=== PATIENT | male | born 1950 | race Caucasian/White ===

== ENCOUNTER 2017-03-12 08:34 | Day surgery (SDC) | payer MEDICARE ==
[~2017-03-12] VITALS: Ht 177.8 cm; Wt 85.0 kg
[~2017-03-12 08:34] MED LIST: ASPI-515 PO; ASPI-621 PO; DILT120C2 PO; FURO20TA3 PO; FURO40TA6 PO; HYDR-3245 PO; MULT-658 PO; POTA10TA5 PO; PRAV20TA2 PO; RIVA20TA PO; VIT1TABL32 PO; WARF5TAB PO
[2017-03-12] MEDS ORDERED: ASPI-496 PO (09:10)
[2017-03-12 09:12] VITALS: BP 128/85
[2017-03-12] MEDS ORDERED: LACTATED RINGERS 1,000 ML IV SCH (09:16)
[2017-03-12 09:44] VITALS: BP 128/85
[2017-03-12] MEDS ORDERED: PLEASE ENTER HEIGHT AND WEIGHT MC SCH (10:00)
[2017-03-12] MEDS ORDERED: BUPIVACAINE/PF 0.5% ONE (11:02)
[2017-03-12] MEDS ORDERED: EPINEPHRINE 1 MG/ML, 1ML ONE (11:02)
[2017-03-12] MEDS ORDERED: AMIODARONE 50 MG/ML, 3ML ONE (11:11)
[2017-03-12] MEDS ORDERED: FENTANYL PF 100 MCG/2ML ONE ×3 (11:14→12:37)
[2017-03-12] MEDS ORDERED: MIDAZOLAM 1 MG/ML, 2ML ONE (11:15)
[2017-03-12] MEDS ORDERED: DEXAMETHASONE 4 MG/ML, 1ML ONE (11:16)
[2017-03-12] MEDS ORDERED: PROPOFOL 10 MG/ML, 20ML ONE (11:16)
[2017-03-12] MEDS ORDERED: ONDANSETRON 2MG/ML, 2ML ONE (11:16)
[2017-03-12] MEDS ORDERED: CEFAZOLIN 1,000 MG ONE (11:16)
[2017-03-12] MEDS ORDERED: SUCCINYLCHOLINE 20 MG/ML, 10ML ONE (11:16)
[2017-03-12] MEDS ORDERED: BUPIVACAINE/PF-EPI 0.5% 1:200K INFIL ONE (11:49)
[2017-03-12] MEDS ORDERED: ACETAMINOPHEN 650 MG/20.3 ML UDC ONE (12:37)
[2017-03-12] MEDS ORDERED: OXYcodone 5 MG/5 ML ORAL.SOL UDC ONE (12:38)
[2017-03-12] MEDS ORDERED: HYDROcodone/APAP 7.5-325MG/15ML UDC PO PRN (13:00)
[2017-03-12] MEDS ORDERED: OXYcodone 5 MG/5 ML ORAL.SOL UDC PO PRN (13:00)
[2017-03-12] MEDS ORDERED: ACETAMINOPHEN 325 MG TABLET PO PRN (13:00)
[2017-03-12] MEDS ORDERED: EPHEDRINE 50 MG/ML, 1ML IVPush PRN (13:00)
[2017-03-12] MEDS ORDERED: METOPROLOL 1 MG/ML, 5ML IV PRN (13:00)
[2017-03-12] MEDS ORDERED: PROMETHAZINE 25 MG/ML, 1ML IV PRN (13:00)
[2017-03-12] MEDS ORDERED: ONDANSETRON 2MG/ML, 2ML IVPush PRN (13:00)
[2017-03-12] MEDS ORDERED: hydrALAzine 20 MG/ML, 1ML IV PRN (13:00)
[2017-03-12] MEDS ORDERED: LABETALOL 5MG/ML, 20ML IV PRN (13:00)
[2017-03-12] MEDS ORDERED: FENTANYL PF 100 MCG/2ML IV PRN (13:00)
[2017-03-12] MEDS ORDERED: HYDROmorphone 1 MG/ML, 1ML ONE (13:01)
[2017-03-12] MEDS: HYDROmorphone 1 MG/ML, 1ML IV PRN ×2 (13:09→13:22)
== END 2017-03-12 16:20 | disposition home or self-care (01) ==
LOC: OUT 08:34
PROVIDERS: ATTEND Orthopaedic Surgery Orthopaedic Surgery of the Spine
PROC: 0QU03JZ Supplement Lumbar Vertebra with Synthetic Substitute, Percutaneous Approach (ICD-10-PCS; 2017-03-12)
PROC: 0QS03ZZ Reposition Lumbar Vertebra, Percutaneous Approach (ICD-10-PCS; principal; 2017-03-12 10:45)
DX: M48.56XA Collapsed vertebra, not elsewhere classified, lumbar region, initial encounter for fracture (principal); M19.90 Unspecified osteoarthritis, unspecified site; I10 Essential (primary) hypertension; E78.5 Hyperlipidemia, unspecified; Z98.890 Other specified postprocedural states; Z88.6 Allergy status to analgesic agent
CPT/HCPCS: 22514; 72100; C1713; J0171; J0330; J0690; J1100; J1170; J2250; J2405; J2704; J3010; J3490; J0282

== ENCOUNTER → 2017-08-09 | Outpatient (CLI) | payer MEDICARE ==
[~2017-08-09] MED LIST changes: +ASPI-496 PO
[2017-08-09 15:51] LABS: BASOPHILS # (AUTO) 0.05 x10^3/uL (0-0.1); BASOPHILS % (AUTO) 0 % (0-1); EOSINOPHILS # (AUTO) 0.22 x10^3/uL (0-0.4); EOSINOPHILS % (AUTO) 2 % (1-7); LYMPHOCYTES # (AUTO) 1.59 x10^3/uL (1-3.4); LYMPHOCYTES % (AUTO) 11 % (22-44); MD NO; MEAN CORPUSCULAR HEMOGLOBIN 33.6 pg (27.5-34.5); MEAN CORPUSCULAR HGB CONC 33.1 g/dL (33.2-36.2); MEAN CORPUSCULAR VOLUME 101.5 fL (81-97); MEAN PLATELET VOLUME 8.4 fL (7.4-10.4); MONOCYTES # (AUTO) 1.41 x10^3/uL (0.2-0.8); MONOCYTES % (AUTO) 10 % (2-9); NEUTROPHILS % (AUTO) 77 % (42-75); PLATELET COUNT 189 x10^3/uL (130-400); RED CELL DISTRIBUTION WIDTH 14.3 % (9.4-14.8)
[2017-08-09 16:02] LABS: ANION GAP 8 mmol/L (5-15); CALCIUM 8.6 mg/dL (8.5-10.1); CHLORIDE 104 mmol/L (98-107)
[2017-08-09 16:03] LABS: ALANINE AMINOTRANSFERASE 21 U/L (12-78); ALBUMIN 3.3 g/dL (3.4-5.0)
[2017-08-09 16:05] LABS: ALKALINE PHOSPHATASE 63 U/L (45-117); BILIRUBIN,TOTAL 0.4 mg/dL (0.2-1.0); TOTAL PROTEIN 7.2 g/dL (6.4-8.2)
== END | disposition home or self-care (01) ==
LOC: LAB 15:35
PROVIDERS: ATTEND Physician Assistant
DX: I10 Essential (primary) hypertension (principal); E78.2 Mixed hyperlipidemia
CPT/HCPCS: 36415; 80053; 85025

== ENCOUNTER 2018-06-30 10:48 | Day surgery (SDC) | payer MEDICARE ==
[~2018-06-30 10:48] MED LIST changes: -ASPI-621 PO; +ASPI81TA45 PO
== END 2018-06-30 12:05 | disposition home or self-care (01) ==
LOC: CACL 10:48
PROVIDERS: ATTEND Internal Medicine Cardiovascular Disease
DX: Z45.09 Encounter for adjustment and management of other cardiac device (principal); I63.9 Cerebral infarction, unspecified; I48.91 Unspecified atrial fibrillation; Z88.1 Allergy status to other antibiotic agents
CPT/HCPCS: 33282; 33284; C1764

== ENCOUNTER → 2019-06-22 | Outpatient (CLI) | payer MEDICARE | END | disposition home or self-care (01) | LOC: RAD 14:10 | PROVIDERS: ATTEND Neurological Surgery | DX: M47.12 Other spondylosis with myelopathy, cervical region (principal); M48.02 Spinal stenosis, cervical region; M25.78 Osteophyte, vertebrae; M48.03 Spinal stenosis, cervicothoracic region; M47.816 Spondylosis without myelopathy or radiculopathy, lumbar region; M47.817 Spondylosis without myelopathy or radiculopathy, lumbosacral region | CPT/HCPCS: 72110; 72141 ==

== ENCOUNTER 2019-08-22 10:31 | Emergency (ER) | payer MEDICARE ==
[~2019-08-22] VITALS: Ht 177.8 cm; Wt 75.0 kg
--- NOTE | 2019-08-22 10:56 | NUR ---
SELWYN. REPORT RECEIVED FROM EMS. PT C/O NOSE BLEED WITH NAUSEA/DZY STARTED TODAY. VOMITTING BLOOD IN ROOM. PT'S AOX4. RESPS EVEN AND UNLABROED. BP/SPO2 MONITORS IN PLACE. CALL LIGHT WITHIN REACH.
[2019-08-22] MEDS ORDERED: PHENYLEPHRINE 10 MG/ML ONE (11:04)
[2019-08-22] MEDS ORDERED: LIDOCAINE-MPF 1%, 5ML ONE (11:05)
[2019-08-22] MEDS ORDERED: PHENYLEPHRINE NASAL 1%, 15ML SPRAY ONE (11:05)
[2019-08-22] MEDS ORDERED: SILVER NITRATE STICK TP ONE (11:06)
--- NOTE | 2019-08-22 11:28 | NUR ---
PT RESTING IN CHAIR. PT'S AOX4. RESPS EVEN AND UNLABORED. IN ROOM.
--- NOTE | 2019-08-22 11:58 | NUR ---
TASK RN;PROVIDER IN ROOM PERFORMING PROCEDURE.
--- NOTE | 2019-08-22 12:20 | NUR ---
TASK RN: Patient is resting comfortably in bed. Vital Signs within normal limits.
[2019-08-22 12:24] LABS: BASOPHILS # (AUTO) 0.22 x10^3/uL (0-0.1); BASOPHILS % (AUTO) 1 % (0-1); EOSINOPHILS # (AUTO) 0.04 x10^3/uL (0-0.4); EOSINOPHILS % (AUTO) 0 % (1-7); LYMPHOCYTES # (AUTO) 0.92 x10^3/uL (1-3.4); LYMPHOCYTES % (AUTO) 6 % (22-44); MD NO; MEAN CORPUSCULAR HEMOGLOBIN 33.5 pg (27.5-34.5); MEAN CORPUSCULAR HGB CONC 33.6 g/dL (33.2-36.2); MEAN CORPUSCULAR VOLUME 99.8 fL (81-97); MEAN PLATELET VOLUME 9.1 fL (7.4-10.4); MONOCYTES % (AUTO) 6 % (2-9); NEUTROPHILS # (AUTO) 13.51 x10^3/uL (1.8-6.8); NEUTROPHILS % (AUTO) 87 % (42-75); PLATELET COUNT 178 x10^3/uL (130-400); RED BLOOD COUNT 4.24 x10^6/uL (4.38-5.82); RED CELL DISTRIBUTION WIDTH 15.2 % (9.4-14.8)
[2019-08-22 12:36] LABS: ALBUMIN 3.1 g/dL (3.4-5.0); ANION GAP 7 mmol/L (5-15); CALCIUM 8.6 mg/dL (8.5-10.1); CHLORIDE 106 mmol/L (98-107); CREATININE 0.83 mg/dL (0.7-1.3)
--- NOTE | 2019-08-22 13:19 | NUR ---
ekg done at bedside by emt.
[2019-08-22 14:14] VITALS: BP 132/90
--- NOTE | 2019-08-22 14:54 | NUR ---
Patient given discharge instructions and they have confirmed that they understand the instructions.
== END 2019-08-22 14:55 | disposition home or self-care (01) ==
LOC: ED 10:51
DX: R04.0 Epistaxis (principal); E87.5 Hyperkalemia; I44.4 Left anterior fascicular block; I25.2 Old myocardial infarction; Z86.73 Personal history of transient ischemic attack (TIA), and cerebral infarction without residual deficits; Z95.1 Presence of aortocoronary bypass graft
CPT/HCPCS: 30905; 36415; 80048; 82040; 85025; 93005; 99284

== ENCOUNTER 2020-05-09 10:05 | Emergency (ER) | payer MEDICARE ==
[~2020-05-09] VITALS: Ht 175.3 cm; Wt 81.0 kg
[~2020-05-09 10:05] MED LIST changes: -WARF5TAB PO; +WARF5TAB2 PO
--- NOTE | 2020-05-09 11:09 | NUR ---
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
[2020-05-09 11:22] LABS: BASOPHILS % (AUTO) 1 % (0-1); EOSINOPHILS % (AUTO) 1 % (1-7); LYMPHOCYTES % (AUTO) 18 % (22-44); MEAN CORPUSCULAR HEMOGLOBIN 29.5 pg (27.5-34.5); MEAN CORPUSCULAR HGB CONC 32.4 g/dL (33.2-36.2); MONOCYTES % (AUTO) 14 % (2-9); NEUTROPHILS % (AUTO) 67 % (42-75); PLATELET COUNT 222 x10^3/uL (130-400); RED BLOOD COUNT 4.37 x10^6/uL (4.38-5.82); RED CELL DISTRIBUTION WIDTH 16.9 % (9.4-14.8)
[2020-05-09 11:23] LABS: MD NO
[2020-05-09 11:34] LABS: ALBUMIN 3.4 g/dL (3.4-5.0); ANION GAP 9 mmol/L (5-15); CALCIUM 8.9 mg/dL (8.5-10.1); CHLORIDE 105 mmol/L (98-107); CREATININE 0.75 mg/dL (0.7-1.3)
--- NOTE | 2020-05-09 11:35 | NUR ---
PT WITH HX OF NEAR SYNCOPE 3 WEEKS AGO, AGAIN THIS AM AFTER SHOWER HAD NEAR SYNCOPE EVENT, -LOC. PT DENIES SYMPTOMS AT THIS TIME, NO CP/SOB/DIZZINESS. PT TO ALL MONITORS AT THIS TIME, IN RM WITH AT BEDSIDE. VSS
[2020-05-09 11:38] LABS: TROPONIN I < 0.015 ng/mL (0.000-0.045)
--- NOTE | 2020-05-09 12:48 | NUR ---
ERMD IN TO UPDATE PT ON POC.
--- NOTE | 2020-05-09 13:33 | NUR ---
BREAK RN:BEDSIDE REPORT RECEIVED FROM PRIMARY RN.
--- NOTE | 2020-05-09 13:36 | NUR ---
PATIENT AMBULATED TO BATHROOM WITH STEADY GAIT.
[2020-05-09 13:41] VITALS: BP 127/82
--- NOTE | 2020-05-09 14:12 | NUR ---
Patient and spouse given discharge instructions and they have confirmed that they understand the instructions, no questions. All patient belongings gathered by patient. Patient ambulatory with steady gait to discharge desk.
== END 2020-05-09 14:13 | disposition home or self-care (01) ==
LOC: ED 12:33
DX: I48.0 Paroxysmal atrial fibrillation (principal); R55 Syncope and collapse; I45.10 Unspecified right bundle-branch block; I49.3 Ventricular premature depolarization; R07.9 Chest pain, unspecified; I25.2 Old myocardial infarction; Z79.01 Long term (current) use of anticoagulants; Z86.73 Personal history of transient ischemic attack (TIA), and cerebral infarction without residual deficits; Z95.1 Presence of aortocoronary bypass graft
CPT/HCPCS: 36415; 71045; 80048; 82040; 84484; 85025; 93005; 99285

== ENCOUNTER → 2020-08-26 | Outpatient (CLI) | payer MEDICARE ==
[~2020-08-26] MED LIST changes: -ASPI-515 PO; +ASPI-963 PO; -HYDR-3245 PO; +HYDR1TAB53 PO
== END | disposition home or self-care (01) ==
LOC: CVU 09:45
PROVIDERS: ATTEND Internal Medicine Cardiovascular Disease
DX: I08.2 Rheumatic disorders of both aortic and tricuspid valves (principal); I11.9 Hypertensive heart disease without heart failure; I48.0 Paroxysmal atrial fibrillation
CPT/HCPCS: 93306